=== PATIENT | female | born 1995 | race Caucasian/White ===

== ENCOUNTER → 2020-07-10 | Outpatient (CLI) | payer BC | END | disposition home or self-care (01) | LOC: LAB 13:38 | PROVIDERS: ATTEND Physician Assistant Medical | DX: Z20.828 Contact with and (suspected) exposure to other viral communicable diseases (principal) | CPT/HCPCS: U0003-CS ==

== ENCOUNTER → 2021-05-16 | Outpatient (CLI) | payer OTHER ==
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
== END ==
LOC: PMG 12:34
PROVIDERS: ATTEND Nurse Practitioner Family
DX: M40.202 Unspecified kyphosis, cervical region (principal)
CPT/HCPCS: 72050